=== PATIENT | male | born 1985 | race Caucasian/White ===

== ENCOUNTER 2021-07-05 14:16 | Emergency (ER) | payer OTHER ==
[~2021-07-05] VITALS: Ht 180.3 cm; Wt 81.7 kg
--- NOTE | ~2021-07-05 | EMS ---
[place] [address] EMS Patient Care Report Name: GARY CHO Room #: DEP PAULA Syed#: [id number] Admission: 07/05/21 Attend Phys: Discharge: 07/05/21 Date of : 89 Report #: [id number] THIS REPORT FOR: //name// Report Transmitted: 07/05/2021 19:24 EMS Care Summary [place], [place] Incident [id number] @ 07/05/2021 13:08 Incident Location [address] [place] [address] Patient GARY CHO Male, 35 Years 1985 Patient Address [address] [place] [address] Patient History Diabetes,Attention Deficit Hyperactivity Disorder (ADHD),Depression, Patient Allergies Sulfa, Patient Medications Insulin, Chief Complaint hypoglycemia Disposition Transported No Lights/[place] Dispatch Reason Convulsions/Seizure Transported To [facility] Narrative pt found supine in bed unconscious. pt step mom called 911 when she went to check on him and found him "almost seizing". pt is a diabetic and she believes he took his insulin, did not eat and fell back asleep. she was able to give him a small amount of [place] [employer]RATIVE ASSISTANT. Pumper crew took pt BGL [employer]ICAL ADMINISTRATIVE ASSISTANT- 23. [place] [address] EMS Patient Care Report Name: GARY CHO Room #: DEP Billie.#: [id number] Admission: 07/05/21 Attend Phys: Discharge: 07/05/21 Date of : 89 Report #: [id number] listed in flow chart. pt given D10 in 2 -100 cc and an additional 50 cc dose increments w/ glucose checks in between. pt increased LOC to 14. pt BSL increased to normal level after 250cc, but fell again as pt was trying to eat a sandwich. pt was wanting to refuse transport but when BGL started to drop again, he was told he needed to go to ER to be monitored. pt ambulatory to unit and seated on cot. pt c/o nausea and headache and was given Zofran w/ relief of nausea. started pt on 2nd bag of D10. transport pt to [facility]. enroute pt given additional 100 cc D10 and BGL increased to 73. after an additional 50cc, pt BGL falls to 70. arrival at ER, report to staff that BGL is continuing to fall. care transferred to staff. Initial Vitals @13:20Glucose: 87, @13:52Glucose: 49, @14:12P: 98,R: 18,BP: 115/78,Glucose: 70,SpO2: 94, @13:16P: 112,R: 18,BP: 138/73,GCS: 7,Glucose: 23,SpO2: 94,Revised Trauma: 10, @13:31P: 101,R: 18,BP: 102/57,GCS: 13,Glucose: 77,SpO2: 94,Revised Trauma: 12, @14:05P: 100,R: 18,BP: 110/67,Pain: 8/10,GCS: 14,Glucose: 73,SpO2: 94,Revised Trauma: 12, Assessments @13:16MENTAL:Confused,SKIN:No Abnormalities,HEENT:Head/Face: No Abnormalities,LUNG SOUNDS:ABDOMEN:PELVIS//GI:EXTREMITIES:PULSE:Radial: 2+ Normal,NEURO:@14:00MENTAL:Time Oriented,Person Oriented,Event Oriented,Place Oriented,SKIN:No Abnormalities,HEENT:Head/Face: No Abnormalities,LUNG SOUNDS:ABDOMEN:PELVIS//GI:EXTREMITIES:PULSE:Radial: 2+ Normal,NEURO:No Abnormalities, Impression Diabetic Hypoglycemia Procedures @13:56 Zofran - 4 Milligrams (mg) - Intravenous (IV) Response: Improved @13:17 IV Therapy - Saline Lock 10cc (20 ga) Site: Antecubital-Left Response: UnchangedSucceeded @14:02 Dextrose 10% - 100 Milliliters (ml) - Intravenous (IV) Response: Improved @13:16 ALS Assessment Response: Unchanged @13:52 Stretcher Response: Unchanged @13:54 3-Lead ECG Response: Unchanged @14:06 Dextrose 10% - 50 Milliliters (ml) - Intravenous (IV) Response: Improved @13:20 Dextrose 10% - 100 Milliliters (ml) - Intravenous (IV) Response: Improved @13:32 Dextrose 10% - 50 Milliliters (ml) - Intravenous (IV) Response: Improved @13:18 Dextrose 10% - 100 Milliliters (ml) - Intravenous (IV) Response: Improved Timeline [address] [address] EMS Patient Care Report Name: GARY CHO Room #: DEP PAULA Syed#: [id number] Admission: 07/05/21 Attend Phys: Discharge: 07/05/21 Date of : 89 Report #: [id number] 13:05,Call Received 13:05,Dispatch Notified 13:08,Dispatched 13:08,En Route 13:15,On Scene 13:16,At Patient 13:16,ALS Assessment,Response: Unchanged 13:16,BP: 138/73 M,PULSE: 112,RR: 18 R,SPO2: 94 Ox,ETCO2: ,B,PAIN: ,GCS: 7, 13:17,IV Therapy - Saline Lock 10cc 20 ga Site: Antecubital-Left,Response: UnchangedSucceeded, 13:18,Dextrose 10% - 100 Milliliters (ml) - Intravenous (IV),Response: Improved 13:20,Dextrose 10% - 100 Milliliters (ml) - Intravenous (IV),Response: Improved 13:20,BP: / M,PULSE: ,RR: R,SPO2: Ox,ETCO2: ,B,PAIN: ,GCS: , 13:31,BP: 102/57 M,PULSE: 101,RR: 18 R,SPO2: 94 Ox,ETCO2: ,B,PAIN: ,GCS: 13, 13:32,Dextrose 10% - 50 Milliliters (ml) - Intravenous (IV),Response: Improved 13:52,Stretcher,Response: Unchanged 13:52,BP: / M,PULSE: ,RR: R,SPO2: Ox,ETCO2: ,B,PAIN: ,GCS: , 13:54,3-Lead ECG,Response: Unchanged 13:56,Zofran - 4 Milligrams (mg) - Intravenous (IV),Response: Improved 14:02,Dextrose 10% - 100 Milliliters (ml) - Intravenous (IV),Response: Improved 14:02,Depart Scene 14:05,BP: 110/67 M,PULSE: 100,RR: 18 R,SPO2: 94 Ox,ETCO2: ,B,PAIN: 8,GCS: 14, 14:06,Dextrose 10% - 50 Milliliters (ml) - Intravenous (IV),Response: Improved 14:12,At Destination 14:12,BP: 115/78 M,PULSE: 98,RR: 18 R,SPO2: 94 Ox,ETCO2: ,B,PAIN: ,GCS: , 14:37,Call Closed Disclaimer v1.1 Copyright 2021 [employer] This EMS Care Summary contains data elements from the applicable legal record (which may be displayed differently). It is designed to provide pertinent information for the following purposes: continuity of care, clinical quality, and state data reporting. The complete legal record is available to ED staff and administrators of the receiving hospital in [facility] Patient Tracker. All data is provided "as is."
[~2021-07-05 14:16] MED LIST: HUMALOG MI100 UNIT/6 SQ; HUMULINR100; ZOFRAN ODT4 MG PO
[2021-07-05 14:52] LABS: HEMATOCRIT 42.8 % (42.0-52.0); HEMOGLOBIN 14.5 gm/dL (14.0-18.0); MCH 30.3 pg (26.0-34.0); MCHC 33.8 g/dL (28.0-37.0); MCV 89.4 fL (80.0-100.0); RBC 4.78 mil/uL (4.50-6.00); RDW 14.5 % (10.5-14.5); WBC 9.1 thou/uL (4.0-11.0)
[2021-07-05 15:01] LABS: CALCIUM 8.7 mg/dL (8.5-10.1); CREATININE 1.2 mg/dL (0.7-1.3); POTASSIUM 3.9 mmol/L (3.5-5.1)
[2021-07-05 15:07] LABS: ALBUMIN 3.8 g/dL (3.4-5.0); TOTAL BILIRUBIN 0.2 mg/dL (0.2-1.0); TOTAL PROTEIN 7.1 g/dL (6.4-8.2)
[2021-07-05 16:52] VITALS: BP 106/65
--- NOTE | 2021-07-06 11:32 | EKG ---
[place] [address] [facility] [place] [address] ELECTROCARDIOGRAM REPORT Name: TAMMIEGARY Room #: FANNY Syed#: [id number] Admission: 07/05/21 Attend Phys: Discharge: 07/05/21 Date of : 89 Report #: [id number] [facility] ED Test Date: 2021-07-05 Test Time: 14:36:47 Pat Name: GARY CHO Department: Room: Gender: [employer] Marker: VALENTINO02 : 1985 Requested By: Abena Hilton Order Number: [id number] MD: Oscar Dudley Measurements Intervals [place] Rate: 81 P: 75 IA: 135 QRS: 76 QRSD: 92 T: 48 QT: 366 QTc: 425 Interpretive Statements Sinus rhythm No previous ECG available for comparison Electronically Signed On 07-06-2021 11:31:59 [employer]T [employer]PERATOR by Oscar Dudley [email or web address] <ELECTRONICALLY SIGNED> By: Oscar Dudley MD 07/06/21 1131 [id number] 1436 Oscar Dudley MD /EPI
== END 2021-07-05 16:58 | disposition home or self-care (01) ==
LOC: ER 14:16
PROVIDERS: Student in an Organized Health Care Education/Training Program
DX: E16.2 Hypoglycemia, unspecified (principal); R56.9 Unspecified convulsions; E11.9 Type 2 diabetes mellitus without complications; Z79.899 Other long term (current) drug therapy; Z88.2 Allergy status to sulfonamides